=== PATIENT | male | born 1960 | race African-American/Black ===

== ENCOUNTER 2021-02-23 01:10 | Inpatient (IN) | payer MEDICAID, OTHER ==
[~2021-02-23] VITALS: Ht 172.7 cm; Wt 119.8 kg
[2021-02-23] MEDS ORDERED: LABETALOL HCL 5 MG/ML 4ML SYRINGE IV ONE ×2 (02:15→04:00)
[2021-02-23] MEDS ORDERED: OLANZapine 5 MG TAB PO ONE (03:30)
[2021-02-23] MEDS ORDERED: LORazepam 2MG/ML-1ML VIAL IV ONE (03:30)
[2021-02-23 04:00] LABS: Basophils # (auto) 0.2 10 ^3/uL (0-0.2); Eosinophils # (auto) 0 10 ^3/uL (0-0.8); Eosinophils % (auto) 0.4 % (0.0-7.0); Hematocrit 41.3 % (41.0-53.0); Hemoglobin 14.3 g/dL (13.5-17.5); Lymphocytes # (auto) 0.9 10 ^3/uL (0.4-5.4); Lymphocytes % (auto) 10.3 % (10.0-50.0); Mean Corpuscular Hemoglobin 32.4 pg (28.0-32.0); Mean Corpuscular Hgb Conc. 34.7 g/dL (32.0-36.0); Mean Corpuscular Volume 93.4 fL (80.0-100.0); Monocytes # (auto) 0.6 10 ^3/uL (0-1.3); Monocytes % (auto) 6.9 % (0.0-12.0); Neutrophils # (auto) 6.7 10 ^3/uL (1.6-8.6); Neutrophils % (auto) 80.4 % (37.0-80.0); Nucleated Red Blood Cells % 0.2 %; Red Blood Cells 4.42 10^6/uL (4.5-5.90); Red Cell Distribution Width 13.9 % (11.8-14.3); White Blood Cell 8.4 10^3/uL (4.4-10.8)
[2021-02-23 04:19] LABS: Alanine Aminotransferase 34 U/L (16-61); Albumin 3.7 g/dL (3.4-5.0); Anion Gap 7 (5-15); Aspartate Aminotransferase 25 U/L (15-37); BUN/Creatinine Ratio 13.8; Blood Alcohol < 3.0 mg/dL (0-5); Blood Urea Nitrogen 18 mg/dL (7-18); Carbon Dioxide 23 mmol/L (21-32); Chloride 110 mmol/L (98-107); GFR African American 72 mL/min; GFR Non-African American 60 mL/min; Glucose 148 mg/dL (74-106); Sodium 140 mmol/L (136-145)
[2021-02-23 04:24] LABS: Alkaline Phosphatase 81 U/L (45-117); Bilirubin, Total 0.2 mg/dL (0.2-1.0); Total Protein 8.3 g/dL (6.4-8.2)
[2021-02-23 07:41] LABS: Urine Bacteria NONE SEEN /hpf (None Seen); Urine Blood TRACE /uL (Negative); Urine Mucus FEW (None Seen); Urine Specific Gravity 1.031 (1.001-1.035); Urine WBC 1 /hpf (0 - 3)
[2021-02-23 07:55] LABS: Amphetamine Screen, Urine POSITIVE (NEGATIVE); Barbiturate Scree,Urine NEGATIVE (NEGATIVE); Benzodiazephine Screen, Urine NEGATIVE (NEGATIVE); Cannabinoid Screen, Urine NEGATIVE (NEGATIVE); Cocaine Screen, Urine NEGATIVE (NEGATIVE)
[2021-02-23 08:02] LABS: Opiate Scree,Urine POSITIVE (NEGATIVE); Phencyclidine Screen, Urine NEGATIVE (NEGATIVE)
[2021-02-23] MEDS ORDERED: HALOPERIDOL LACTATE 5 MG/ML INJ VIAL IM ONE (08:45)
[2021-02-23] MEDS ORDERED: diphenhdrAMINE HCL 50 MG/1 ML VL IM ONE (08:45)
[2021-02-23] MEDS ORDERED: LORazepam 2MG/ML-1ML VIAL IM ONE (08:45)
[2021-02-23] MEDS ORDERED: SODIUM CHLORIDE 0.9% 1,000 ML IV ONE ×2 (11:15)
[2021-02-23] MEDS ORDERED: ENOXAPARIN SOD 100 MG/1 ML SYRINGE SC ONE ×2 (11:15→13:15)
[2021-02-23] MEDS ORDERED: ASPirin 81 mg TAB PO ONE (11:15)
[2021-02-23] MEDS ORDERED: THIAMINE 100mg/ml INJ (200mg/2ml VIAL) IV ONE ×3 (11:15→13:15)
[2021-02-23] MEDS ORDERED: MORPHINE SULFATE INJECTION 2 MG/ML SYRG IV PRN ×2 (12:30→13:30)
[2021-02-23] MEDS ORDERED: NITROGLYCERIN 0.4 MG SL TAB SL PRN ×2 (12:30→13:30)
[2021-02-23] MEDS ORDERED: LORazepam 2MG/ML-1ML VIAL IV STA (12:37)
[2021-02-23] MEDS: chlordiazePOXIDE HCL 25 MG CAP PO SCH ×2 (13:00→21:54)
[2021-02-23] MEDS ORDERED: MULTIPLE VITAMINS W/ MINERALS TAB PO ONE (13:15)
[2021-02-23] MEDS ORDERED: LABETALOL HCL 5 MG/ML 4ML SYRINGE IV PRN (13:15)
[2021-02-23] MEDS ORDERED: FOLIC ACID 1 MG TAB PO ONE (13:15)
[2021-02-23] MEDS: SODIUM CHLORIDE 0.9% 1,000 ML IV SCH (13:30)
[2021-02-23] MEDS ORDERED: FAMOTIDINE (10MG/ML) 2ML VL IV ONE (13:30)
[2021-02-23] MEDS ORDERED: ATORVASTATIN 20 MG TAB PO ONE (13:30)
[2021-02-23] MEDS ORDERED: LORazepam 0.5 MG TAB PO PRN (13:30)
[2021-02-23] MEDS ORDERED: DOCUSATE SOD 100 MG CAP PO PRN (13:30)
[2021-02-23] MEDS ORDERED: HYDROcodone-ACET 5/325MG TAB PO PRN (13:30)
[2021-02-23] MEDS ORDERED: ONDANSETRON HCL 4 MG/2 ML VIAL IV PRN (13:30)
[2021-02-23] MEDS ORDERED: ACETAMINOPHEN 325 MG TAB PO PRN (13:30)
[2021-02-23 13:49] VITALS: BP 148/89
[2021-02-23] MEDS: IPRATROPIUM BROM 0.5 MG/2.5ML INH SOL NEB SCH ×4 (14:23→22:15)
[2021-02-23] MEDS ORDERED: HALOPERIDOL LACTATE 5 MG/ML INJ VIAL ONE (18:34)
[2021-02-23] MEDS ORDERED: diphenhdrAMINE HCL 50 MG/1 ML VL ONE (18:35)
[2021-02-23] MEDS ORDERED: LORazepam 2MG/ML-1ML VIAL ONE (18:35)
[2021-02-23] MEDS ORDERED: LORazepam 2MG/ML-1ML VIAL IV PRN (18:45)
[2021-02-23] MEDS ORDERED: diphenhdrAMINE HCL 50 MG/1 ML VL IV PRN (18:45)
[2021-02-23] MEDS ORDERED: HALOPERIDOL LACTATE 5 MG/ML INJ VIAL IM PRN (18:45)
[2021-02-23 19:29] LABS: Cholesterol 116 mg/dL (< 200); HDL Cholesterol 55 mg/dL (40-59); LDL Cholesterol 50 mg/dL (< 100); Triglycerides 75 mg/dL (< 150)
[2021-02-23] MEDS: FAMOTIDINE (10MG/ML) 2ML VL IV SCH (21:54)
[2021-02-23] MEDS: CARVEDILOL 3.125 MG TAB PO SCH (21:54)
[2021-02-23] MEDS: ENOXAPARIN SOD 100 MG/1 ML SYRINGE SC SCH (21:55)
[2021-02-23 23:15] VITALS: BP 140/87
[2021-02-23 23:30] VITALS: BP 140/87
[2021-02-24] MEDS: IPRATROPIUM BROM 0.5 MG/2.5ML INH SOL NEB SCH ×5 (02:00→18:12)
[2021-02-24] MEDS: chlordiazePOXIDE HCL 25 MG CAP PO SCH ×3 (04:45→22:45)
[2021-02-24 05:12] VITALS: BP 124/80
[2021-02-24 07:41] LABS: Basophils # (auto) 0 10 ^3/uL (0-0.2); Basophils % (auto) 0.5 % (0.0-2.0); Eosinophils # (auto) 0.2 10 ^3/uL (0-0.8); Eosinophils % (auto) 3.7 % (0.0-7.0); Hematocrit 37.6 % (41.0-53.0); Hemoglobin 12.7 g/dL (13.5-17.5); Lymphocytes # (auto) 1.7 10 ^3/uL (0.4-5.4); Mean Corpuscular Hemoglobin 31.8 pg (28.0-32.0); Mean Corpuscular Hgb Conc. 33.8 g/dL (32.0-36.0); Monocytes # (auto) 0.5 10 ^3/uL (0-1.3); Monocytes % (auto) 10.8 % (0.0-12.0); Neutrophils # (auto) 2.6 10 ^3/uL (1.6-8.6); Nucleated Red Blood Cells % 0.1 %; Red Cell Distribution Width 14.1 % (11.8-14.3)
[2021-02-24 07:54] LABS: Potassium 3.9 mmol/L (3.5-5.1)
[2021-02-24 08:04] LABS: INR 0.97 (0.9-1.15); Partial Thromboplastin Time 26.5 sec (23.6-33.0)
[2021-02-24 08:07] LABS: BUN/Creatinine Ratio 14.9; Bilirubin, Total 0.3 mg/dL (0.2-1.0); Calcium 8.9 mg/dL (8.5-10.1); Magnesium 2.3 mg/dL (1.6-2.6); Phosphorus 3.1 mg/dL (2.5-4.90); Total Protein 6.4 g/dL (6.4-8.2)
[2021-02-24 09:00] VITALS: BP 136/83
[2021-02-24] MEDS: FAMOTIDINE (10MG/ML) 2ML VL IV SCH ×2 (09:32→22:44)
[2021-02-24] MEDS: THIAMINE HCL 100 MG TAB PO SCH (09:33)
[2021-02-24] MEDS: ASPirin 81 mg TAB PO SCH (09:33)
[2021-02-24] MEDS: FOLIC ACID 1 MG TAB PO SCH (09:33)
[2021-02-24] MEDS: MULTIPLE VITAMINS W/ MINERALS TAB PO SCH (09:34)
[2021-02-24] MEDS: CARVEDILOL 3.125 MG TAB PO SCH ×2 (09:35→22:45)
[2021-02-24] MEDS: ENOXAPARIN SOD 100 MG/1 ML SYRINGE SC SCH (09:36)
[2021-02-24] MEDS: LISINOPRIL 5 MG TAB PO SCH (09:36)
[2021-02-24] MEDS: SODIUM CHLORIDE 0.9% 1,000 ML IV SCH (12:52)
[2021-02-24 17:00] VITALS: BP 144/82
[2021-02-24] MEDS ORDERED: IPRATROPIUM BROM 0.5 MG/2.5ML INH SOL NEB PRN (18:15)
[2021-02-24 22:00] VITALS: BP_SYST 122; BP_SYST 156; BP_DIAS 84; BP_DIAS 93
[2021-02-24] MEDS ORDERED: ATORVASTATIN 20 MG TAB PO SCH (22:00)
[2021-02-24] MEDS: ENOXAPARIN SOD 120 MG/0.8 ML SYRINGE SC SCH (22:45)
[2021-02-24] MEDS: MORPHINE SULFATE INJECTION 2 MG/ML SYRG IV PRN (23:44)
[2021-02-25 07:41] LABS: Basophils # (auto) 0.1 10 ^3/uL (0-0.2); Basophils % (auto) 0.8 % (0.0-2.0); Eosinophils # (auto) 0.3 10 ^3/uL (0-0.8); Eosinophils % (auto) 3.9 % (0.0-7.0); Hematocrit 43.1 % (41.0-53.0); Hemoglobin 14.3 g/dL (13.5-17.5); Lymphocytes # (auto) 1.9 10 ^3/uL (0.4-5.4); Lymphocytes % (auto) 29.7 % (10.0-50.0); Mean Corpuscular Hemoglobin 31.2 pg (28.0-32.0); Mean Corpuscular Hgb Conc. 33.2 g/dL (32.0-36.0); Monocytes # (auto) 0.7 10 ^3/uL (0-1.3); Monocytes % (auto) 10.5 % (0.0-12.0); Neutrophils # (auto) 3.5 10 ^3/uL (1.6-8.6); Neutrophils % (auto) 55.1 % (37.0-80.0); Nucleated Red Blood Cells % 0.1 %; Red Blood Cells 4.58 10^6/uL (4.5-5.90); Red Cell Distribution Width 14.1 % (11.8-14.3); White Blood Cell 6.4 10^3/uL (4.4-10.8)
[2021-02-25 07:56] LABS: Potassium 4.2 mmol/L (3.5-5.1)
[2021-02-25 08:03] LABS: BUN/Creatinine Ratio 15.7; Calcium 9.6 mg/dL (8.5-10.1); Magnesium 3.4 mg/dL (1.6-2.6)
[2021-02-25 08:15] VITALS: BP 125/85
[2021-02-25 09:00] VITALS: BP 125/85
[2021-02-25] MEDS: FAMOTIDINE (10MG/ML) 2ML VL IV SCH (09:36)
[2021-02-25] MEDS: ASPirin 81 mg TAB PO SCH (09:37)
[2021-02-25] MEDS: THIAMINE HCL 100 MG TAB PO SCH (09:37)
[2021-02-25] MEDS: FOLIC ACID 1 MG TAB PO SCH (09:37)
[2021-02-25] MEDS: CARVEDILOL 3.125 MG TAB PO SCH (09:37)
[2021-02-25] MEDS: MULTIPLE VITAMINS W/ MINERALS TAB PO SCH (09:38)
[2021-02-25] MEDS: LISINOPRIL 5 MG TAB PO SCH (09:38)
[2021-02-25] MEDS: ENOXAPARIN SOD 120 MG/0.8 ML SYRINGE SC SCH (09:38)
[2021-02-25] MEDS ORDERED: CHOLECALCIFEROL (VITD3) 2,000 UNIT CAP/TAB PO SCH (10:00)
[2021-02-25] MEDS ORDERED: chlordiazePOXIDE HCL 25 MG CAP PO SCH (10:00)
[2021-02-25] MEDS ORDERED: ATO40T PO (10:23)
[2021-02-25] MEDS ORDERED: KEP500T PO (10:23)
[2021-02-25] MEDS ORDERED: METO-159 PO (10:23)
[2021-02-25] MEDS ORDERED: METO-158 PO (10:23)
[2021-02-25] MEDS ORDERED: APIX5TAB PO (10:23)
[2021-02-25] MEDS ORDERED: THIA100T10 PO (10:23)
[2021-02-25] MEDS ORDERED: CHOL20007 PO (11:14)
[2021-02-25 13:00] VITALS: BP 123/85
[2021-02-25] MEDS: MORPHINE SULFATE INJECTION 2 MG/ML SYRG IV PRN (13:26)
[2021-02-25 13:55] VITALS: BP 118/65
[2021-02-26] MEDS ORDERED: chlordiazePOXIDE HCL 25 MG CAP PO SCH (07:00)
== END 2021-02-25 15:30 | disposition home or self-care (01) | DRG 91 ==
LOC: ER 01:10 → EDBD 01:10 → TELE 12:21 → TELE-WESTW 23:15
PROVIDERS: ADMIT Hospitalist; ATTEND Internal Medicine
DX: G92.8 Other toxic encephalopathy (principal); I21.A1 Myocardial infarction type 2; I50.33 Acute on chronic diastolic (congestive) heart failure; F10.239 Alcohol dependence with withdrawal, unspecified; Z68.41 Body mass index [BMI] 40.0-44.9, adult; I16.9 Hypertensive crisis, unspecified; F10.229 Alcohol dependence with intoxication, unspecified; I16.0 Hypertensive urgency; G89.29 Other chronic pain; Z20.822 Contact with and (suspected) exposure to COVID-19; F19.10 Other psychoactive substance abuse, uncomplicated; E66.01 Morbid (severe) obesity due to excess calories; K21.9 Gastro-esophageal reflux disease without esophagitis; K29.70 Gastritis, unspecified, without bleeding; M54.9 Dorsalgia, unspecified; E55.9 Vitamin D deficiency, unspecified; E78.5 Hyperlipidemia, unspecified; F15.90 Other stimulant use, unspecified, uncomplicated; G40.909 Epilepsy, unspecified, not intractable, without status epilepticus; I11.0 Hypertensive heart disease with heart failure; I25.2 Old myocardial infarction; Z86.718 Personal history of other venous thrombosis and embolism; Z86.73 Personal history of transient ischemic attack (TIA), and cerebral infarction without residual deficits
CPT/HCPCS: 36415; 70450; 71045; 71250; 80048; 80053; 80061; 80307; 80320; 81001; 82306; 83036; 83735; 83880; 84100; 84443; 84484; 84550; 85025; 85379; 85610; 85730; 87040; 87081; 87086; 87426; 93005; 93306; 93970; 94640; 96361; 96372; 96374; 96375; 96376; A4565; G0378; J3490